=== PATIENT | female | born 1980 | race Caucasian/White ===

== ENCOUNTER 2017-05-30 19:38 | Emergency (ER) | payer BC ==
[2017-05-30] MEDS ORDERED: cefTRIAXone 1,000 MG VIAL IM ONE (21:53)
--- NOTE | 2017-05-30 21:59 | EDM.PDOC ---
ED HPI GENERAL MEDICAL PROBLEM - General Stated Complaint: ALLERGIC REACTION Time Seen by Provider: 05/30/17 21:53 Source of Information: Reports: Patient History Limitations: Reports: No Limitations - History of Present Illness INITIAL COMMENTS - FREE TEXT/NARRATIVE: c/o red and tender LLE stung by wasp 2d ago, some localized swell, 1d ago began to get red and warm spread out from sting site, worse today - Related Data Home Meds: Home Meds Cephalexin [IJD: Cephalexin] 500 mg PO .EVERY 8 HOURS #23 cap 05/30/17 [Rx] Sulfamethoxazole/Trimethoprim [Bactrim Ds Tablet] 1 each PO BID #14 tablet 05/30 [Rx] ED ROS GENERAL - Review of Systems Review Of Systems: See Below Constitutional: Reports: No Symptoms HEENT: Reports: No Symptoms Respiratory: Reports: No Symptoms Cardiovascular: Reports: No Symptoms Endocrine: Reports: No Symptoms GI/Abdominal: Reports: No Symptoms : Reports: No Symptoms Musculoskeletal: Reports: No Symptoms Skin: Reports: Rash, Erythema, Change in Color Neurological: Reports: No Symptoms Psychiatric: Reports: No Symptoms Hematologic/Lymphatic: Reports: No Symptoms Immunologic: Reports: No Symptoms ED EXAM, SKIN/RASH Exam: See Below Exam Limited By: No Limitations General Appearance: Alert, WD/WN, No Apparent Distress Skin: Other (sting site is L pretib area dorsally 1/2 way between ankle and knee , there is darker red discoloration of ~3 x 4 cm immediately around sting site, there is red and warm and slight swell up to tibial tuberosity and down to just below ankle, no L inguinal LNs, no fluctuance, no abscess) Course - Orders/Labs/Meds Orders: Active Orders 24 hr Category Date Time Status cefTRIAXone [Rocephin] Med 05/30/17 21:53 Once 1,000 mg IM ONETIME ONE Departure - Departure Time of Disposition: 21:57 Disposition: Home, Self-Care 01 Condition: Good Clinical Impression: Cellulitis of leg, left, Wasp sting - Discharge Information Prescriptions: Cephalexin [IJD: Cephalexin] 500 mg PO .EVERY 8 HOURS #23 cap Sulfamethoxazole/Trimethoprim [Bactrim Ds Tablet] 1 each PO BID #14 tablet Instructions: Cellulitis, Adult Referrals: PCP,None [Primary Care Provider] - Additional Instructions: For infection, take cephalexin 500 mg 1 tab 4 times a day for 2 days, then 1 tab 3 times a day for 5 days. For infection, take trimethoprim/sulfamethoxazole DS 1 tab 2 times a day for 7 days. For pain, take ibuprofen 200 mg 3 tabs 4 times a day. You will need to be seen tomorrow if you have increase in redness, swelling or pain. See your doctor in 2 days. Call your Physician or Return to Emergency Department if: * Your condition worsens in any way. * You develop fever greater than 100.4. * You have vomitting that does not stop with medications. * You have pain that is not controlled with medications. - My Orders Last 24 Hours: My Active Orders 05/30/17 21:53 cefTRIAXone [Rocephin] 1,000 mg IM ONETIME ONE - Assessment/Plan Last 24 Hours: My Active Orders 05/30/17 21:53 cefTRIAXone [Rocephin] 1,000 mg IM ONETIME ONE
[2017-05-31 00:33] VITALS: BP 109/75
== END 2017-05-30 22:15 | disposition home or self-care (01) ==
LOC: FB.ED 19:38
DX: T63.461A Toxic effect of venom of wasps, accidental (unintentional), initial encounter (principal); L03.116 Cellulitis of left lower limb
CPT/HCPCS: 96372; 99283; J0696